=== PATIENT | male | born 1950 | race Caucasian/White ===

== ENCOUNTER 2017-10-13 08:40 | Day surgery (SDC) | payer MEDICARE, BC ==
[2017-10-06 15:13] LABS: BASOPHILS % (AUTO) 0.4 % (0-1); EOSINOPHILS # (AUTO) 0.3 X10'3 (0-0.9); EOSINOPHILS % (AUTO) 3.7 % (0-6); LYMPHOCYTES # (AUTO) 1.3 X10'3 (1.1-4.8); LYMPHOCYTES % (AUTO) 17.7 % (21-51); MEAN CORPUSCULAR HEMOGLOBIN 32.9 PG (27.0-31.0); MEAN CORPUSCULAR HGB CONC 35.3 % (33.0-36.5); MEAN CORPUSCULAR VOLUME 93.1 FL (78-98); MEAN PLATELET VOLUME 7.9 FL (7.4-10.4); MONOCYTES # (AUTO) 0.5 X10'3 (0-0.9); MONOCYTES % (AUTO) 6.8 % (2-12); NEUTROPHILS # (AUTO) 5.4 X10'3 (1.8-7.7); NEUTROPHILS % (AUTO) 71.4 % (42-75); PRE OP HEMATOCRIT 38.9 % (42.0-52.0); PRE OP HEMOGLOBIN 13.8 g/dL (14.0-17.9); PRE OP PLATELET COUNT 229 X10'3 (140-440); RED BLOOD COUNT 4.18 X10'6 (4.70-6.10); RED CELL DISTRIBUTION WIDTH 13.5 % (11.5-14.5)
[2017-10-06 15:32] LABS: ALBUMIN 3.6 G/DL (3.4-5.0); ALBUMIN/GLOBULIN RATIO 1.1 (1.1-1.5); ALKALINE PHOSPHATASE 42 IU/L (46-116); BLOOD UREA NITROGEN 18 MG/DL (7-18); BUN/CREATININE RATIO 15.1 (5.4-32.0); CALCIUM 8.5 MG/DL (8.5-10.1); CHLORIDE 102 MMOL/L (99-107); CREATININE 1.19 MG/DL (0.60-1.10); PRE OP ALT 33 U/L (30-65); PRE OP ANION GAP 9 (8-16); PRE OP AST 21 U/L (10-37); PRE OP BILIRUB, TOTAL 0.3 MG/DL (0.0-1.0); PRE OP GLUCOSE 123 MG/DL (70-104); PRE OP POTASSIUM 4.1 MMOL/L (3.4-5.1); PRE OP SODIUM 139 MMOL/L (135-145); TOTAL CARBON DIOXIDE 28.5 MMOL/L (24-32); eGFR 61 ML/MIN
[~2017-10-13] VITALS: Ht 188 cm; Wt 128.4 kg
[2017-10-13] VITALS (8 sets, daily range): BP systolic 127–138; BP diastolic 66–76
[~2017-10-13 08:40] MED LIST: ALBU1.257 NEB; ALBU18HF2 INH; AMIO200T57 PO; BUPIVAcaine/PF 2.5 mg/ml (0.25%) 30ml vial ONE; CARV-50 PO; FURO-150 PO; LISI10TA4 PO; SPIR25TA3 PO; TRAZ-143 PO; cefazolin/dext.iso 2gm/50ml 50 ML IV ONE; famotidine 20mg tablet PO ONE; ringers solution, lacted 1,000 ML IV SCH
[2017-10-13] MEDS ORDERED: albuterol 2.5 MG/3 ML nebule NEB ONE ×2 (10:40→12:25)
[2017-10-13] MEDS ORDERED: fentaNYL/PF 50MCG/1 ML 2ML syringe ONE (11:45)
[2017-10-13] MEDS ORDERED: midazolam 2 mg/2 ml injection ONE (11:46)
[2017-10-13] MEDS ORDERED: propofol inj 20 ML IV ONE (11:49)
[2017-10-13] MEDS ORDERED: ringers solution, lacted 1,000 ML IV SCH (12:24)
[2017-10-13] MEDS ORDERED: ondansetron/PF 4mg/2ml inj IV PRN (12:25)
[2017-10-13] MEDS ORDERED: proCHLORperazine 10 MG/2 ml inj IV PRN (12:25)
[2017-10-13] MEDS ORDERED: meperidine/PF 50mg/ml syringe IV PRN ×3 (12:25)
[2017-10-13] MEDS ORDERED: morphine 2 MG/ML inj. syringe IV PRN ×2 (12:25)
== END 2017-10-13 13:35 | disposition home or self-care (01) ==
LOC: PRE-OP 08:40 → PAS 13:35
PROVIDERS: ATTEND Orthopaedic Surgery Hand Surgery
DX: G56.01 Carpal tunnel syndrome, right upper limb (principal); M67.431 Ganglion, right wrist; M65.841 Other synovitis and tenosynovitis, right hand; J44.9 Chronic obstructive pulmonary disease, unspecified; I48.91 Unspecified atrial fibrillation; M19.90 Unspecified osteoarthritis, unspecified site; Z96.642 Presence of left artificial hip joint; Z86.718 Personal history of other venous thrombosis and embolism; Z79.01 Long term (current) use of anticoagulants; Z72.89 Other problems related to lifestyle; Z79.899 Other long term (current) drug therapy
CPT/HCPCS: 25111; 26145; 36415; 64721; 80053; 85025; 93005; 94640; 94760; A6222; A6449; J0690; J2250; J2704; J3010; J3490; J7120; 88304

== ENCOUNTER 2019-06-03 05:47 | Inpatient (IN) | payer MEDICARE, BC ==
[2019-05-28 12:30] LABS: BASOPHILS # (AUTO) 0.1 X10'3 (0-0.2); BASOPHILS % (AUTO) 0.7 % (0-1); EOSINOPHILS # (AUTO) 0.2 X10'3 (0-0.9); EOSINOPHILS % (AUTO) 1.8 % (0-6); LYMPHOCYTES # (AUTO) 1.5 X10'3 (1.1-4.8); LYMPHOCYTES % (AUTO) 17.2 % (21-51); MEAN CORPUSCULAR HGB CONC 33.6 g/dL (33.0-36.5); MEAN CORPUSCULAR VOLUME 98.2 FL (78-98); MEAN PLATELET VOLUME 8.4 FL (7.4-10.4); MONOCYTES # (AUTO) 0.7 X10'3 (0-0.9); MONOCYTES % (AUTO) 8.6 % (2-12); NEUTROPHILS # (AUTO) 6.2 X10'3 (1.8-7.7); NEUTROPHILS % (AUTO) 71.7 % (42-75); PRE OP HEMATOCRIT 39.8 % (42.0-52.0); PRE OP HEMOGLOBIN 13.4 g/dL (14.0-17.9); PRE OP PLATELET COUNT 247 X10'3 (140-440); RED BLOOD COUNT 4.06 X10'6 (4.70-6.10); RED CELL DISTRIBUTION WIDTH 13.7 % (11.5-14.5)
[2019-05-28 12:42] LABS: PRE OP INR 1.1 INR; PRE OP PROTIME 11.3 SECONDS (9.0-12.0)
[2019-05-28 12:59] LABS: ALBUMIN 3.6 G/DL (3.4-5.0); ALBUMIN/GLOBULIN RATIO 0.9 (1.1-1.5); ALKALINE PHOSPHATASE 64 IU/L (46-116); BLOOD UREA NITROGEN 16 MG/DL (7-18); BUN/CREATININE RATIO 14.8 (5.4-32.0); CALCIUM 8.9 MG/DL (8.5-10.1); CHLORIDE 102 MMOL/L (99-107); CREATININE 1.08 MG/DL (0.60-1.10); PRE OP ALT 24 U/L (30-65); PRE OP ANION GAP 9 (8-16); PRE OP AST 15 U/L (10-37); PRE OP BILIRUB, TOTAL 0.5 MG/DL (0.0-1.0); PRE OP GLUCOSE 97 MG/DL (70-104); PRE OP POTASSIUM 3.8 MMOL/L (3.4-5.1); PRE OP SODIUM 140 MMOL/L (135-145); TOTAL CARBON DIOXIDE 28.9 MMOL/L (24-32); TOTAL PROTEIN 7.7 G/DL (6.4-8.2); eGFR 68 ML/MIN
[~2019-06-03] VITALS: Ht 188 cm; Wt 128.3 kg
[2019-06-03] VITALS (18 sets, daily range): BP systolic 103–166; BP diastolic 53–88
[~2019-06-03 05:47] MED LIST changes: -AMIO200T57 PO; +AMIO200T61 PO; +APIX5TAB3 PO; +ATOR10TA PO; -BUPIVAcaine/PF 2.5 mg/ml (0.25%) 30ml vial ONE; +FLUT16SP20 BOTHNARES; +FLUT250D IH; -FURO-150 PO; +LIDOcaine 1% (10mg/ml) 2ml vial ONE; +SILD100T PO; -SPIR25TA3 PO; +SPIR25TA5 PO; -TRAZ-143 PO; +TRAZ-251 PO; +albuterol 2.5 MG/3 ML nebule NEB ONE; +ceFAZolin 1GM/D5W- ADD-VANTAGE 50 ML IV ONE; +tranexamic acid inj. 1,000 MG in normal saline 100 ML IV ONE; +vancomycin inj 1,500 MG in normal saline 300ml IV soln IV ONE
[2019-06-03] MEDS ORDERED: ceFAZolin 1000mg inj ONE (06:39)
[2019-06-03] MEDS ORDERED: morphine /PF 1mg/ml 10ml inj. ONE (07:23)
[2019-06-03] MEDS ORDERED: MIDAZolam 1mg/ml 10ml vial ONE (07:23)
[2019-06-03] MEDS ORDERED: fentaNYL/PF 50MCG/1 ML 2ML syringe ONE (07:23)
[2019-06-03] MEDS ORDERED: propofol inj 20 ML IV ONE (07:55)
[2019-06-03] MEDS ORDERED: LIDOcaine 1%/PF 5ML 10 MG/ML VIAL ONE (07:55)
[2019-06-03] MEDS ORDERED: BUPIVAcaine/PF 7.5mg/ml (0.75%) 10ml vial ONE (07:55)
[2019-06-03] MEDS ORDERED: ringers solution, lacted 1,000 ML IV SCH (09:53)
[2019-06-03] MEDS ORDERED: naloxone 2mg/2ml inj 2 MG in normal saline 500ml IV soln 500 ML IV PRN (09:54)
[2019-06-03] MEDS ORDERED: ondansetron/PF 4mg/2ml inj IV PRN ×2 (09:55)
[2019-06-03] MEDS ORDERED: proCHLORperazine 10 MG/2 ml inj IV PRN (09:55)
[2019-06-03] MEDS ORDERED: morphine 4 MG/ML inj SYRINge IV PRN ×2 (09:55)
[2019-06-03] MEDS ORDERED: diphenhydrAMINE 50 mg/ml inj IV PRN (09:55)
[2019-06-03] MEDS ORDERED: meperidine/PF 25mg/ml syringe IV PRN ×3 (09:55)
--- NOTE | 2019-06-03 10:20 | NUR ---
ADMITTED TO PACU FROM OR ACCOMPANIED BY ANESTHESIA. INTIAL PHYSICAL ASSESSMENT DONE AND RECORDED. REPORT RECEIVED FROM ANESTHESIA.
[2019-06-03] MEDS ORDERED: HYDROcodone/acetaminophen 10/325mg tab PO PRN (10:25)
[2019-06-03] MEDS ORDERED: diphenhydrAMINE 25mg capsule PO PRN (10:25)
[2019-06-03] MEDS ORDERED: magnesium hydroxide 30ml (MOM) UD suspension PO PRN (10:25)
[2019-06-03] MEDS ORDERED: bisacodyl 10mg suppository rectal RC PRN (10:25)
[2019-06-03] MEDS ORDERED: acetaminophen 325mg tablet PO PRN (10:25)
--- NOTE | 2019-06-03 11:30 | NUR ---
PACU DISCHARGE CRITERIA MET, REPORT GIVEN TO FLOOR. DENIES PAIN OR DISCOMFORT, TRANSFERRED TO ROOM IN STABLE GOOD CONDITION.
--- NOTE | 2019-06-03 11:40 | NUR ---
ASSUMED CARE, RECEIVED REPORT FROM JACINDA RN, POST VS STARTED, AT BEDSIDE, REPORTS 0/10 PAIN. WILL CONTINUE TO MONITOR.
[2019-06-03] MEDS: potassium Cl 20mEq in NS 1,000 ML IV SCH ×2 (16:16→20:21)
[2019-06-03] MEDS: ondansetron/PF 4mg/2ml inj IV PRN (16:35)
[2019-06-03] MEDS: ceFAZolin 1GM/D5W- ADD-VANTAGE 50 ML IV SCH ×2 (16:44→23:57)
[2019-06-03] MEDS ORDERED: aspirin 325mg tablet PO SCH (17:30)
--- NOTE | 2019-06-03 18:04 | NUR ---
Problems reprioritized. Patient report given, questions answered & plan of care reviewed with LUCINDA BREWSTER.
[2019-06-03] MEDS: budesonide 0.5mg/2ml UD nebule IH SCH (19:34)
[2019-06-03] MEDS: albuterol 2.5 MG/3 ML nebule NEB PRN (19:34)
[2019-06-03] MEDS ORDERED: vancomycin/NS 1 GM ADD-VANTAGE 250 ML IV SCH (20:00)
[2019-06-03] MEDS: sennosides 8.6mg tablet PO SCH (20:19)
[2019-06-03] MEDS: traZODone 50mg tablet PO SCH (20:19)
[2019-06-03] MEDS: carVEDilol 12.5mg tablet PO SCH (20:19)
[2019-06-03] MEDS: HYDROcodone/acetaminophen 10/325mg tab PO PRN (23:55)
[2019-06-04] VITALS (7 sets, daily range): BP systolic 99–125; BP diastolic 46–64
[2019-06-04 05:48] LABS: BASOPHILS # (AUTO) 0.1 X10'3 (0-0.2); BASOPHILS % (AUTO) 0.4 % (0-1); EOSINOPHILS # (AUTO) 0.1 X10'3 (0-0.9); HEMATOCRIT 32.8 % (42.0-52.0); HEMOGLOBIN 11.1 g/dl (14.0-17.9); LYMPHOCYTES % (AUTO) 8.3 % (21-51); MEAN CORPUSCULAR HEMOGLOBIN 33.7 PG (27.0-31.0); MEAN CORPUSCULAR HGB CONC 33.9 g/dL (33.0-36.5); MEAN CORPUSCULAR VOLUME 99.6 FL (78-98); MEAN PLATELET VOLUME 7.8 FL (7.4-10.4); MONOCYTES # (AUTO) 1.4 X10'3 (0-0.9); MONOCYTES % (AUTO) 11.4 % (2-12); NEUTROPHILS # (AUTO) 9.4 X10'3 (1.8-7.7); NEUTROPHILS % (AUTO) 78.9 % (42-75); PLATELET COUNT 221 X10'3 (140-440); RED BLOOD COUNT 3.29 X10'6 (4.70-6.10); RED CELL DISTRIBUTION WIDTH 13.2 % (11.5-14.5); WHITE BLOOD COUNT 11.9 X10'3 (4.5-11.0)
--- NOTE | 2019-06-04 06:00 | NUR ---
Patient in room ORTHO 4023. I have received report from and had the opportunity to ask questions and assume patient care NEY Coe.
--- NOTE | 2019-06-04 06:10 | NUR ---
Patient in room ORTHO 4023. I have received report from November and had the opportunity to ask questions and assume patient care.
[2019-06-04 06:19] LABS: ALANINE AMINOTRANSFERASE 22 U/L (12-78); ALBUMIN 2.7 G/DL (3.4-5.0); ALBUMIN/GLOBULIN RATIO 0.8 (1.1-1.5); ALKALINE PHOSPHATASE 51 IU/L (46-116); ANION GAP 9 (8-16); ASPARTATE AMINO TRANSFERASE 18 U/L (10-37); BILIRUBIN,TOTAL 0.6 MG/DL (0.1-1.0); BLOOD UREA NITROGEN 15 MG/DL (7-18); BUN/CREATININE RATIO 13.9 (5.4-32.0); CHLORIDE 103 MMOL/L (99-107); CREATININE 1.08 MG/DL (0.60-1.10); GLUCOSE 125 MG/DL (70-104); POTASSIUM 4.4 MMOL/L (3.5-5.1); SODIUM 138 MMOL/L (135-145); TOTAL CARBON DIOXIDE 26.4 MMOL/L (24-32); TOTAL PROTEIN 6.2 G/DL (6.4-8.2); eGFR 68 ML/MIN
[2019-06-04] MEDS: potassium Cl 20mEq in NS 1,000 ML IV SCH ×3 (06:21→20:48)
--- NOTE | 2019-06-04 08:25 | NUR ---
Patient complained of a tight chest and difficult breathing. Patient requested breathing treatment. Respiratory Therapy messaged.
[2019-06-04] MEDS: albuterol 2.5 MG/3 ML nebule NEB PRN (08:38)
[2019-06-04] MEDS: HYDROcodone/acetaminophen 10/325mg tab PO PRN ×3 (09:04→20:49)
[2019-06-04] MEDS: spironolactone 25 MG tablet PO SCH (09:05)
--- NOTE | 2019-06-04 09:05 | NUR ---
Applied a new ice pack to patient's right hip.
[2019-06-04] MEDS: amiodarone 200mg tablet PO SCH (09:06)
[2019-06-04] MEDS: apixaban 5mg tablet PO SCH ×2 (09:07→20:43)
[2019-06-04] MEDS: carVEDilol 12.5mg tablet PO SCH ×2 (09:07→20:44)
[2019-06-04] MEDS: lisinopril 10 MG tablet PO SCH (09:09)
--- NOTE | 2019-06-04 12:36 | NUR ---
Student Medication Administration: For this medication-pass time frame 5791-2932, all medications were reviewed, administered and documented per hospital policy by Haydee Zaragoza. Student documentation:I have reviewed and agree with all interventions, assessments performed and documented by Haydee Zaragoza.
--- NOTE | 2019-06-04 12:40 | NUR ---
Patient report given to and questions answered & plan of care reviewed with Nurse Carvalho. Informed patient voiding of 50 mL.
[2019-06-04] MEDS: HYDROmorphone 1 mg/ml syringe IV PRN ×2 (12:49→19:08)
--- NOTE | 2019-06-04 14:27 | NUR ---
Joint replacement consult: Pt/SO seen by RD for written/verbal high protein ed w/ RD contact information provided. Pt agrees to double meats/eggs w/ meals; dietary notified. Pt receiving beer BIDLD since habit at home per RN. GERALD d/w RN regarding thiamin for pt given MCV 99.6 and receiving etoh. Addendum: 06/04/19 at [address] Amended: Links added.
--- NOTE | 2019-06-04 18:20 | NUR ---
Patient in room ORTHO 4023. I have received report from NEY WARD and had the opportunity to ask questions and assume patient care.
--- NOTE | 2019-06-04 18:24 | NUR ---
Problems reprioritized. Patient report given, questions answered & plan of care reviewed with NEY Reilly.
[2019-06-04] MEDS: budesonide 0.5mg/2ml UD nebule IH SCH (20:10)
[2019-06-04] MEDS: albuterol 1.25 MG/3 ML (1/2 strength) nebule NEB SCH (20:10)
[2019-06-04] MEDS: sennosides 8.6mg tablet PO SCH (20:43)
[2019-06-04] MEDS: traZODone 50mg tablet PO SCH (20:43)
[2019-06-04] MEDS: diphenhydrAMINE 25mg capsule PO PRN (23:32)
[2019-06-05] MEDS: HYDROcodone/acetaminophen 10/325mg tab PO PRN ×4 (01:38→20:21)
[2019-06-05 06:00] VITALS: BP 94/54
[2019-06-05 06:21] LABS: BASOPHILS % (AUTO) 0.3 % (0-1); EOSINOPHILS # (AUTO) 0.2 X10'3 (0-0.9); EOSINOPHILS % (AUTO) 1.9 % (0-6); HEMATOCRIT 29.1 % (42.0-52.0); LYMPHOCYTES # (AUTO) 1.1 X10'3 (1.1-4.8); LYMPHOCYTES % (AUTO) 11.3 % (21-51); MEAN CORPUSCULAR HGB CONC 34.4 g/dL (33.0-36.5); MEAN CORPUSCULAR VOLUME 98.9 FL (78-98); MEAN PLATELET VOLUME 8.2 FL (7.4-10.4); MONOCYTES % (AUTO) 10.5 % (2-12); NEUTROPHILS # (AUTO) 7.6 X10'3 (1.8-7.7); PLATELET COUNT 193 X10'3 (140-440); RED BLOOD COUNT 2.94 X10'6 (4.70-6.10)
--- NOTE | 2019-06-05 06:28 | NUR ---
Problems reprioritized. Patient report given, questions answered & plan of care reviewed with NEY DEGROOT.
[2019-06-05 06:35] LABS: ALANINE AMINOTRANSFERASE 19 U/L (12-78); ALBUMIN 2.4 G/DL (3.4-5.0); ALBUMIN/GLOBULIN RATIO 0.6 (1.1-1.5); ALKALINE PHOSPHATASE 47 IU/L (46-116); ANION GAP 7 (8-16); ASPARTATE AMINO TRANSFERASE 18 U/L (10-37); BILIRUBIN,TOTAL 0.3 MG/DL (0.1-1.0); BLOOD UREA NITROGEN 13 MG/DL (7-18); BUN/CREATININE RATIO 14.4 (5.4-32.0); CALCIUM 8.3 MG/DL (8.5-10.1); CHLORIDE 101 MMOL/L (99-107); GLUCOSE 121 MG/DL (70-104); POTASSIUM 3.9 MMOL/L (3.5-5.1); SODIUM 135 MMOL/L (135-145); TOTAL CARBON DIOXIDE 27.3 MMOL/L (24-32); TOTAL PROTEIN 6.1 G/DL (6.4-8.2); eGFR 84 ML/MIN
[2019-06-05] MEDS: carVEDilol 12.5mg tablet PO SCH ×2 (08:16→20:19)
[2019-06-05] MEDS: amiodarone 200mg tablet PO SCH (08:16)
[2019-06-05] MEDS: spironolactone 25 MG tablet PO SCH (08:16)
[2019-06-05] MEDS: apixaban 5mg tablet PO SCH ×2 (08:17→20:19)
[2019-06-05] MEDS: lisinopril 10 MG tablet PO SCH (08:17)
[2019-06-05] MEDS: ondansetron/PF 4mg/2ml inj IV PRN (08:26)
--- NOTE | 2019-06-05 08:31 | NUR ---
IV Zofran given by primary RN, PO meds given by student nurse Elen Gauthier from [facility]
[2019-06-05] MEDS: albuterol 1.25 MG/3 ML (1/2 strength) nebule NEB SCH ×2 (09:58→19:51)
[2019-06-05] MEDS: budesonide 0.5mg/2ml UD nebule IH SCH ×2 (09:58→19:48)
[2019-06-05 10:00] VITALS: BP_SYST 87; BP_SYST 88; BP_DIAS 38; BP_DIAS 40
[2019-06-05] MEDS ORDERED: mag hydrox/Alum hydrox/simeth 30ml oral suspension PO PRN (17:10)
[2019-06-05 18:00] VITALS: BP 90/52
--- NOTE | 2019-06-05 18:25 | NUR ---
Problems reprioritized. Patient report given, questions answered & plan of care reviewed with
--- NOTE | 2019-06-05 18:30 | NUR ---
Patient in room ORTHO 4023. I have received report from NEY DEGROOT and had the opportunity to ask questions and assume patient care.
[2019-06-05] MEDS: albuterol 2.5 MG/3 ML nebule NEB PRN (19:48)
[2019-06-05] MEDS: sennosides 8.6mg tablet PO SCH (20:19)
[2019-06-05] MEDS: traZODone 50mg tablet PO SCH (20:19)
[2019-06-05 21:00] VITALS: BP 125/92
[2019-06-05] MEDS: diphenhydrAMINE 25mg capsule PO PRN (21:49)
[2019-06-06] MEDS: HYDROcodone/acetaminophen 10/325mg tab PO PRN (05:10)
[2019-06-06 06:00] VITALS: BP 93/48
[2019-06-06 06:14] LABS: BASOPHILS % (AUTO) 0.3 % (0-1); EOSINOPHILS # (AUTO) 0.2 X10'3 (0-0.9); EOSINOPHILS % (AUTO) 2.1 % (0-6); HEMATOCRIT 26.8 % (42.0-52.0); HEMOGLOBIN 9.2 g/dl (14.0-17.9); LYMPHOCYTES # (AUTO) 1.2 X10'3 (1.1-4.8); MEAN CORPUSCULAR HGB CONC 34.4 g/dL (33.0-36.5); MEAN CORPUSCULAR VOLUME 98.8 FL (78-98); MEAN PLATELET VOLUME 8.4 FL (7.4-10.4); NEUTROPHILS # (AUTO) 6.6 X10'3 (1.8-7.7); NEUTROPHILS % (AUTO) 73.6 % (42-75); PLATELET COUNT 199 X10'3 (140-440); RED BLOOD COUNT 2.71 X10'6 (4.70-6.10)
--- NOTE | 2019-06-06 06:20 | NUR ---
Patient in room ORTHO 4023. I have received report from Melba and had the opportunity to ask questions and assume patient care.
--- NOTE | 2019-06-06 06:22 | NUR ---
Problems reprioritized. Patient report given, questions answered & plan of care reviewed with NEY DEGROOT.
[2019-06-06 06:33] LABS: ALANINE AMINOTRANSFERASE 16 U/L (12-78); ALBUMIN 2.1 G/DL (3.4-5.0); ALBUMIN/GLOBULIN RATIO 0.6 (1.1-1.5); ALKALINE PHOSPHATASE 46 IU/L (46-116); ANION GAP 5 (8-16); ASPARTATE AMINO TRANSFERASE 18 U/L (10-37); BILIRUBIN,TOTAL 0.2 MG/DL (0.1-1.0); BLOOD UREA NITROGEN 15 MG/DL (7-18); BUN/CREATININE RATIO 14.7 (5.4-32.0); CALCIUM 8.1 MG/DL (8.5-10.1); CHLORIDE 101 MMOL/L (99-107); CREATININE 1.02 MG/DL (0.60-1.10); GLUCOSE 109 MG/DL (70-104); POTASSIUM 4.1 MMOL/L (3.5-5.1); SODIUM 134 MMOL/L (135-145); TOTAL CARBON DIOXIDE 28.1 MMOL/L (24-32); TOTAL PROTEIN 5.8 G/DL (6.4-8.2); eGFR 72 ML/MIN
[2019-06-06] MEDS: carVEDilol 12.5mg tablet PO SCH (08:00)
[2019-06-06] MEDS: spironolactone 25 MG tablet PO SCH (08:00)
[2019-06-06] MEDS: apixaban 5mg tablet PO SCH (08:00)
[2019-06-06] MEDS: lisinopril 10 MG tablet PO SCH (08:00)
[2019-06-06] MEDS: amiodarone 200mg tablet PO SCH (08:00)
[2019-06-06 08:05] VITALS: BP 90/55
[2019-06-06] MEDS: albuterol 1.25 MG/3 ML (1/2 strength) nebule NEB SCH (08:23)
[2019-06-06] MEDS: budesonide 0.5mg/2ml UD nebule IH SCH (08:23)
[2019-06-06 10:23] VITALS: BP 90/45
--- NOTE | 2019-06-06 10:57 | NUR ---
Student documentation: I have reviewed all interventions, assessments performed and documented by [facility]. Student Medication Administration: For this medication-pass time frame, all medication were reviewed, dispensed, administered and documented per hospital policy by [facility].
--- NOTE | 2019-06-06 13:32 | NUR ---
Report called to Jacque at [facility]
--- NOTE | 2019-06-06 14:18 | NUR ---
Pt was picked up by [employer] for transport to [facility].
== END 2019-06-06 14:15 | DRG 470 ==
LOC: PAS IN 05:47 → EDSTATUS 07:30 → ORTHO 4S 11:25
PROVIDERS: ADMIT Orthopaedic Surgery; ATTEND Orthopaedic Surgery
PROC: 5A09357 Assistance with Respiratory Ventilation, Less than 24 Consecutive Hours, Continuous Positive Airway Pressure (ICD-10-PCS; 2019-06-03)
PROC: 0SR906Z Replacement of Right Hip Joint with Oxidized Zirconium on Polyethylene Synthetic Substitute, Open Approach (ICD-10-PCS; principal; 2019-06-03 07:33)
DX: M16.11 Unilateral primary osteoarthritis, right hip (principal); D62 Acute posthemorrhagic anemia; I48.20 Chronic atrial fibrillation, unspecified; G47.30 Sleep apnea, unspecified; I10 Essential (primary) hypertension; E66.01 Morbid (severe) obesity due to excess calories; J44.9 Chronic obstructive pulmonary disease, unspecified; Z68.36 Body mass index [BMI] 36.0-36.9, adult; Z79.899 Other long term (current) drug therapy
CPT/HCPCS: 36415; 71045; 80053; 82948; 85025; 85610; 85730; 86885; 86900; 86901; 86920; 87081; 93005; 94640; 94760; 97110; 97116; 97161; 97530; A4615; A7000; C1758; C1776; G0378; J0690; J1170; J1200; J2001; J2250; J2270; J2405; J2704; J3010; J3370; J3480; J3490; J7120; J7626; Q0163

== ENCOUNTER 2022-05-23 08:26 | Day surgery (SDC) | payer MEDICARE, BC ==
[2022-05-18 16:07] LABS: BASOPHILS # (AUTO) 0.1 X10'3 (0-0.2); BASOPHILS % (AUTO) 0.8 % (0-1); EOSINOPHILS # (AUTO) 0.1 X10'3 (0-0.9); EOSINOPHILS % (AUTO) 0.9 % (0-6); MEAN CORPUSCULAR HEMOGLOBIN 33.3 PG (27.0-31.0); MEAN CORPUSCULAR HGB CONC 33.3 g/dL (33.0-36.5); MEAN CORPUSCULAR VOLUME 100.3 FL (78-98); MEAN PLATELET VOLUME 8.3 FL (7.4-10.4); MONOCYTES # (AUTO) 0.6 X10'3 (0-0.9); MONOCYTES % (AUTO) 9.6 % (2-12); NEUTROPHILS % (AUTO) 73.7 % (42-75); PRE OP HEMATOCRIT 41.1 % (42.0-52.0); PRE OP HEMOGLOBIN 13.7 g/dL (14.0-17.9); PRE OP PLATELET COUNT 227 X10'3 (140-440); RED CELL DISTRIBUTION WIDTH 13.4 % (11.5-14.5)
[2022-05-18 16:11] LABS: ALBUMIN 3.4 G/DL (3.4-5.0); ALKALINE PHOSPHATASE 55 IU/L (46-116); BLOOD UREA NITROGEN 14 MG/DL (7-18); BUN/CREATININE RATIO 15.6 (5.4-32.0); CALCIUM 8.8 MG/DL (8.5-10.1); CHLORIDE 108 MMOL/L (99-107); PRE OP ALT 17 U/L (30-65); PRE OP ANION GAP 5 (8-16); PRE OP AST 14 U/L (10-37); PRE OP BILIRUB, TOTAL 0.3 MG/DL (0.0-1.0); PRE OP GLUCOSE 109 MG/DL (70-104); PRE OP POTASSIUM 3.8 MMOL/L (3.4-5.1); PRE OP SODIUM 143 MMOL/L (135-145); TOTAL CARBON DIOXIDE 29.9 MMOL/L (24-32); TOTAL PROTEIN 6.8 G/DL (6.4-8.2); eGFR 83 ML/MIN
[2022-05-23] VITALS (10 sets, daily range): BP systolic 116–131; BP diastolic 52–70
[~2022-05-23] VITALS: Ht 188 cm; Wt 106.8 kg
[~2022-05-23 08:26] MED LIST changes: -ALBU1.257 NEB; -ALBU18HF2 INH; -AMIO200T61 PO; -ATOR10TA PO; +ATOR40TA72 PO; +BUDE10.7 INH; +BUPIVAcaine/PF 2.5 mg/ml (0.25%) 30ml vial ONE; +BUPIVAcaine/PF 2.5mg/ml (0.25%) 10ml vial ONE; +DOCUMENT DATE & TIME OF BETA-BLOCKER PO ONE; -FLUT16SP20 BOTHNARES; -FLUT250D IH; +LIDOcaine 0.5% (5mg/ml) 50ml vial ONE; -LIDOcaine 1% (10mg/ml) 2ml vial ONE; +LISI10TA27 PO; -LISI10TA4 PO; -SILD100T PO; -albuterol 2.5 MG/3 ML nebule NEB ONE; -ceFAZolin 1GM/D5W- ADD-VANTAGE 50 ML IV ONE; +ceFAZolin inj. 2,000 MG in dextrose 5%-water 100 ML IV ONE; -cefazolin/dext.iso 2gm/50ml 50 ML IV ONE; -tranexamic acid inj. 1,000 MG in normal saline 100 ML IV ONE; -vancomycin inj 1,500 MG in normal saline 300ml IV soln IV ONE
[2022-05-23] MEDS ORDERED: morphine 4 MG/ML inj SYRINge IV PRN (09:35)
[2022-05-23] MEDS ORDERED: ringers solution, lacted 1,000 ML IV SCH (09:35)
[2022-05-23] MEDS ORDERED: morphine 2 MG/ML inj. syringe IV PRN (09:35)
[2022-05-23] MEDS ORDERED: fentaNYL/PF 50MCG/1 ML 2ML syringe IV PRN ×2 (09:35)
[2022-05-23] MEDS ORDERED: hydrALAZINE 20mg/ml inj. IV PRN (09:35)
[2022-05-23] MEDS ORDERED: labetalol 20mg/4ml (5mg/ml) syringe IV PRN (09:35)
[2022-05-23] MEDS ORDERED: ondansetron/PF 4mg/2ml inj IV PRN (09:35)
[2022-05-23] MEDS ORDERED: propofol inj 20 ML IV ONE ×2 (12:03→12:11)
[2022-05-23] MEDS ORDERED: BUPIVAcaine 0.25% w/Epi /PF 30ml vial ONE (12:29)
--- NOTE | 2022-05-23 12:35 | NUR ---
Received from OR via [facility], accompanied by Anesthesiologist DR BROWN and report given by Anesthesiolgist. PT PRESNTS WITH 20G RIGHT HAND, DRESSING ON LEFT HAND RENA, VSS. Addendum: 05/23/22 at 1247 by Rama Blackmon RN, RN Amended: Links added.
--- NOTE | 2022-05-23 13:35 | NUR ---
ALL DISCHARGE CRITERIA HAS BEEN MET. VSS, PAIN AT A TOLERABLE LEVEL, VOIDING AND ABLE TO SAFELY AMBULATE AND TRANSFER SELF. IV TAKEN OUT WITHOUT COMPLICATIONS. ALL DISCHARGE INSTRUCTIONS COVERED WITH PATIENT AND ALL QUESTIONS ANSWERED, COPY GIVEN TO PATIENT. PATIENT TAKEN OUT VIA WHEELCHAIR TO PERSONAL VEHICLE WHERE FAMILY/FRIEND DROVE PATIENT HOME. Addendum: 05/23/22 at 1350 by Rama Blackmon RN, RN Amended: Links added.
== END 2022-05-23 13:35 | disposition home or self-care (01) ==
LOC: PAS 08:26
PROVIDERS: ATTEND Orthopaedic Surgery Hand Surgery
DX: G56.02 Carpal tunnel syndrome, left upper limb (principal); J44.9 Chronic obstructive pulmonary disease, unspecified; I10 Essential (primary) hypertension; M65.842 Other synovitis and tenosynovitis, left hand; Z79.899 Other long term (current) drug therapy; Z98.890 Other specified postprocedural states; Z96.643 Presence of artificial hip joint, bilateral; Z72.89 Other problems related to lifestyle; M19.90 Unspecified osteoarthritis, unspecified site
CPT/HCPCS: 25115; 36415; 64721; 80053; 82948; 85025; 93005; J0690; J2704; J3490; J7030; J7060; J7120; S0020; Z7506; Z7512; 88305; A4215; A6449

== ENCOUNTER 2024-09-09 14:12 | Outpatient (CLI) | payer MEDICARE, BC ==
[~2024-09-09 14:12] MED LIST changes: -APIX5TAB3 PO; -BUPIVAcaine/PF 2.5 mg/ml (0.25%) 30ml vial ONE; -BUPIVAcaine/PF 2.5mg/ml (0.25%) 10ml vial ONE; -CARV-50 PO; +CARV6.252 PO; -DOCUMENT DATE & TIME OF BETA-BLOCKER PO ONE; +GABA100C PO; +LIDO700A32 TD; -LIDOcaine 0.5% (5mg/ml) 50ml vial ONE; -LISI10TA27 PO; +LISI5TAB22 PO; +RIVA20TA PO; -TRAZ-251 PO; +TRAZ-256 PO; -ceFAZolin inj. 2,000 MG in dextrose 5%-water 100 ML IV ONE; -famotidine 20mg tablet PO ONE; -ringers solution, lacted 1,000 ML IV SCH
== END 2024-09-09 23:59 | disposition home or self-care (01) ==
LOC: RAD 14:12
PROVIDERS: ATTEND Internal Medicine Cardiovascular Disease
DX: Z01.810 Encounter for preprocedural cardiovascular examination (principal); I48.91 Unspecified atrial fibrillation; I08.8 Other rheumatic multiple valve diseases
CPT/HCPCS: 93306

== ENCOUNTER 2024-09-13 08:32 | Day surgery (SDC) | payer MEDICARE, BC ==
[~2024-09-13] VITALS: Ht 188 cm; Wt 109.5 kg
[2024-09-13] VITALS (17 sets, daily range): BP systolic 83–104; BP diastolic 37–81; PULSE 60–106; RESP 11–20; TEMP 97.8; O2SAT 92–99
[2024-09-13 10:11] LABS: BASOPHILS # (AUTO) 0.1 X10'3 (0-0.2); BASOPHILS % (AUTO) 0.9 % (0-1); EOSINOPHILS # (AUTO) 0.1 X10'3 (0-0.9); EOSINOPHILS % (AUTO) 2.1 % (0-6); HEMATOCRIT 39.6 % (42.0-52.0); HEMOGLOBIN 13.5 g/dl (14.0-17.9); LYMPHOCYTES # (AUTO) 1.1 X10'3 (1.1-4.8); LYMPHOCYTES % (AUTO) 17.6 % (21-51); MEAN CORPUSCULAR HEMOGLOBIN 33.8 PG (27.0-31.0); MEAN CORPUSCULAR HGB CONC 34.1 g/dL (33.0-36.5); MEAN CORPUSCULAR VOLUME 99.3 FL (78-98); MEAN PLATELET VOLUME 8.8 FL (7.4-10.4); MONOCYTES # (AUTO) 0.5 X10'3 (0-0.9); MONOCYTES % (AUTO) 7.2 % (2-12); NEUTROPHILS # (AUTO) 4.7 X10'3 (1.8-7.7); NEUTROPHILS % (AUTO) 72.2 % (42-75); PLATELET COUNT 174 X10'3 (140-440); RED BLOOD COUNT 3.99 X10'6 (4.70-6.10); RED CELL DISTRIBUTION WIDTH 13.4 % (11.5-14.5); WHITE BLOOD COUNT 6.5 X10'3 (4.5-11.0)
[2024-09-13] MEDS ORDERED: LAN0.125T PO (10:12)
[2024-09-13] MEDS ORDERED: APIX5TAB3 PO (10:12)
[2024-09-13] MEDS ORDERED: ATOR-2 PO (10:12)
[2024-09-13] MEDS ORDERED: AMI200T PO (10:12)
[2024-09-13 10:20] LABS: INR 1.7 INR; PROTHROMBIN TIME 17.1 SECONDS (9.0-12.0)
[2024-09-13 10:25] LABS: ALBUMIN 3.4 G/DL (3.4-5.0); ANION GAP 3 (8-16); BLOOD UREA NITROGEN 19 MG/DL (7-18); BUN/CREATININE RATIO 25.3 (10.0-20.0); CALCIUM 8.9 MG/DL (8.5-10.1); CHLORIDE 105 MMOL/L (99-107); CREATININE 0.75 MG/DL (0.60-1.10); GLUCOSE 105 MG/DL (70-104); POTASSIUM 4.2 MMOL/L (3.5-5.1); SODIUM 138 MMOL/L (135-145); TOTAL CARBON DIOXIDE 29.6 MMOL/L (24-32); eCRCL 100 ML/MIN; eGFR > 90 ML/MIN
[2024-09-13] MEDS: MIDAZolam 1mg/ml 10ml vial IV ONE (11:50)
[2024-09-13] MEDS: normal saline 1000ml 1,000 ML IV SCH (11:50)
[2024-09-13] MEDS: fentaNYL/PF 50MCG/1 ML 2ML syringe IV ONE (11:50)
[2024-09-13] MEDS: amiodarone 150mg/dext, iso-os 100 ML IV ONE ×2 (12:08→12:19)
== END 2024-09-13 14:20 | disposition home or self-care (01) ==
LOC: SSTAY O 08:32
PROVIDERS: ATTEND Internal Medicine Cardiovascular Disease
DX: I48.0 Paroxysmal atrial fibrillation (principal); R00.8 Other abnormalities of heart beat; I42.9 Cardiomyopathy, unspecified
CPT/HCPCS: 36415; 80048; 83735; 85025; 85610; 92960; 93005; J0282; J2250; J3010; J7030; Z7610